=== PATIENT | female | born 1985 | race American Indian/Alaskan Native ===

== ENCOUNTER 2020-02-17 14:26 | Inpatient (IN) | payer OTHER ==
[~2020-02-17 14:26] MED LIST: VITAFOL-OB+DHA1 EACH PO
--- NOTE | 2020-02-23 09:01 | NUR ---
02/23/20 0901 Sheets,Salma 0803 PT ARRIVED TO ROOM DROWSY AND DENIES PAIN AND NAUSEA. SPINAL LEVEL T-6 AND PT DENIES SOB. SPINAL AND FUNDAL CHECK EDUCATION GIVEN. BABY TO CHEST WITH FBC RN. VSS. PT UNABLE TO MOVE LEGS.
--- NOTE | 2020-02-24 07:48 | PR ---
[facility] [address] [place], [place] [address] Signed PP Progress Notes Datetime Report Generated by MARTI: 02/24/2020 07:48 SUBJECTIVE: [id number] Pain: Within Normal Limits Nausea/Vomiting: Denies Flatus: Yes Vital Signs: [id number] Vital Signs: Reviewed; Within Normal Limits EXAM: Ongoing Cardiovascular: Normal Respiratory: Normal Abdomen/Uterus: Abnormal Lochia: Normal Vulva/Perineum: Not Done Breasts: Not Done CVA Tenderness: Not Done Extremities: Normal Incision: Normal Progress: Normal Exam Comments: Abdomen with active BS. Fundus firm, NT @ U-2. H/H 8.8/25.5, WBC 10.1, plat 177k IMPRESSION/PLAN/PROCEDURES: [id number] Impression: Normal Progression Other Plans: ambulate, shower Procedures: None Progress Notes: Doing well. Will increase activity and see how this is tolerated. Signing Physician: Najma Collins MD Copies: ~ *Electronically Signed* 02/24/20 0748 NAJMA COLLINS MD PATIENT NAME: HILTON,ANNA MARIE CHRISTINE PROGRESS NOTE DATE OF : 85 PHYSICIAN: NAJMA COLLINS MD RPT #: [id number] REPORT IS CONFIDENTIAL AND NOT TO BE RELEASED WITHOUT AUTHORIZATION
--- NOTE | 2020-02-25 07:39 | OR ---
[facility] [address] [place], [place] [address] Signed DATE OF OPERATION: 02/23/2020 SURGEON: Najma Collins MD DETACKER: Cervantes. PREOPERATIVE DIAGNOSES: Term , previous section x2, low-lying placenta. POSTOPERATIVE DIAGNOSES: Term , previous section x2, low-lying placenta, delivered. PROCEDURE: Repeat section with low segment transverse uterine incision. ANESTHESIA: Spinal. DRAINS: Randhawa catheter. INDICATIONS AND FINDINGS: The patient is a 34-year-old female, 3, para 2, admitted at 39 and 1/7th weeks for a repeat section. Her had been notable only for low-lying placenta, which was posterior. She has had no bleeding or other issues otherwise. At the time of surgery, the lower segment was very thin. The placenta, tubes and ovaries were normal. The little girl was delivered via lower segment transverse uterine incision from the ROT position with Apgars of 8 and 9 and weight of 7 pounds 13 ounces. There was difficulty with uterine atony intraoperatively, though this had improved by the conclusion of the procedure. DESCRIPTION OF PROCEDURE: The patient was prepped and draped in the supine position. A repeat Pfannenstiel skin incision was made and carried down through the fascia. The incision was extended laterally. The inferior and superior fascial flaps were then created. The muscles were bluntly divided and the peritoneum was opened sharply and the incision extended superiorly and inferiorly. There were few omental adhesions to the anterior peritoneum and these were divided with the cautery. These were fairly small. The Lloyd retractor Electronically Signed By: NAJMA COLLINS MD 02/25/20 0739 PATIENT NAME: ANNA MARIE CANELA OPERATIVE REPORT DATE OF : 85 REPORT #: [id number] PHYSICIAN: NAJMA COLLINS MD PCP: [facility] REPORT IS CONFIDENTIAL AND NOT TO BE RELEASED WITHOUT AUTHORIZATION [facility] [address] [place], [place] [address] Signed was then placed. The uterine wall was then scored and entered at the upper aspect of the peritoneal reflection. The baby was delivered with the above findings and handed off to the pediatric staff in attendance. Following this, the placenta was removed manually. The uterus was explored with a lap tape assuring no remaining fragments. The edges of the incision were identified and the uterus was closed in 2 layers using 0 Monocryl. The first layer was a running locking stitch and the second was a vertical imbricating stitch. Additional [id number] were required near the left side of the incision and the midportion for control of bleeding. The abdomen was copiously irrigated and inspected and bleeding points on the peritoneum were controlled with cautery. Because of the raw area and the difficulty attaining hemostasis, it was felt that Tisseel was indicated. This was doubled over the uterine incision to aid in hemostasis. The bladder peritoneum was superficially tacked to the incision with interrupted sutures of 2-0 chromic. Following this, the retractor was removed. The peritoneum was identified and an ACell graft was laid over the lower segment to aid in healing. The peritoneum was then closed with a running suture of 3-0 Vicryl. The muscles were brought together in the midline with interrupted sutures of 0 Vicryl. Bleeding points were controlled with cautery. This layer was also irrigated and hemostasis was noted. ACell powder was sprinkled over the muscles to aid in healing. The fascia was then closed from each angle to the midline with a running suture of 0 Vicryl. The subcu space was irrigated, inspected and bleeding points controlled with cautery. The deep space was controlled with interrupted sutures of 3-0 Vicryl and the skin was closed with alcira. All sponge and needle counts were correct. The patient tolerated the procedure well and was taken to the recovery room in good condition. MD CHUY ValdiviaW/JORDANL /[id number] cc: Dr. Cervantes Copies: ~ Electronically Signed By: NAJMA COLLINS MD 02/25/20 0739 PATIENT NAME: ANNA MARIE CANELA OPERATIVE REPORT DATE OF : 85 REPORT #: [id number] PHYSICIAN: NAJMA COLLINS MD PCP: [facility] REPORT IS CONFIDENTIAL AND NOT TO BE RELEASED WITHOUT AUTHORIZATION
--- NOTE | 2020-02-25 08:45 | PR ---
[facility] [address] [place], [place] [address] Signed PP Progress Notes Datetime Report Generated by MARTI: 02/25/2020 08:44 SUBJECTIVE: [id number] Pain: Within Normal Limits Nausea/Vomiting: Denies Flatus: Yes Vital Signs: [id number] Vital Signs: Reviewed; Within Normal Limits EXAM: Ongoing Cardiovascular: Not Done Respiratory: Not Done Abdomen/Uterus: Abnormal Lochia: Normal Vulva/Perineum: Not Done Breasts: Not Done CVA Tenderness: Not Done Extremities: Normal Incision: Normal Progress: Normal Exam Comments: Abdomen with active BS. Fundus firm, NT @ U-1. IMPRESSION/PLAN/PROCEDURES: [id number] Impression: Normal Progression Plan: Remove Sofy; Discharge Other Plans: ambulate, shower Procedures: None Progress Notes: Doing well. She is ready for D/C. Signing Physician: Najma Collins MD Copies: ~ *Electronically Signed* 02/25/20 0844 NAJMA COLLINS MD PATIENT NAME: ANNA MARIE CANELA PROGRESS NOTE DATE OF : 85 PHYSICIAN: NAJMA COLLINS MD RPT #: [id number] REPORT IS CONFIDENTIAL AND NOT TO BE RELEASED WITHOUT AUTHORIZATION
== END 2020-02-25 12:10 | disposition home or self-care (01) | DRG 787 ==
LOC: FBC 02-23 05:00
PROVIDERS: ADMIT Obstetrics & Gynecology; ATTEND Obstetrics & Gynecology
PROC: 10D00Z1 Extraction of Products of Conception, Low, Open Approach (ICD-10-PCS; principal; 2020-02-23 06:45)
DX: O34.211 Maternal care for low transverse scar from previous cesarean delivery (principal); O44.43 Low lying placenta NOS or without hemorrhage, third trimester; N85.8 Other specified noninflammatory disorders of uterus; Z3A.39 39 weeks gestation of pregnancy; Z37.0 Single live birth; O32.2XX0 Maternal care for transverse and oblique lie, not applicable or unspecified; O75.89 Other specified complications of labor and delivery
CPT/HCPCS: 01961; 36415; 85027; A9270; J0690; J1100; J2001; J2274; J2405; J2550; J2590; J2765; J3010; J7121

== ENCOUNTER 2025-04-14 07:25 | Day surgery (SDC) | payer OTHER | END 2025-04-14 10:53 | disposition home or self-care (01) | LOC: DS 07:25 | PROC: 0UPD8HZ Removal of Contraceptive Device from Uterus and Cervix, Via Natural or Artificial Opening Endoscopic (ICD-10-PCS; principal; 2025-04-14) | DX: T83.32XA Displacement of intrauterine contraceptive device, initial encounter (principal); Y76.8 Miscellaneous obstetric and gynecological devices associated with adverse incidents, not elsewhere classified; Z79.899 Other long term (current) drug therapy ==